=== PATIENT | female | born 1970 | race African-American/Black ===

== ENCOUNTER 2016-05-12 10:02 | Inpatient (IN) | payer OTHER ==
[~2016-05-12] VITALS: Ht 175.3 cm; Wt 85.0 kg
[~2016-05-12 10:02] MED LIST: PROM25SU8 PO; Z.0.NO CURRENT MEDS
[2016-05-12 10:06] VITALS: BP 206/109; PULSE 68; RESP 20; TEMP 98.1; O2SAT 99
[2016-05-12] MEDS ORDERED: AMLO5TAB2 PO (10:13)
[2016-05-12] MEDS ORDERED: SODIUM CHLOR 0.9% 1000 ML INJ 1,000 ML IV SCH (10:33)
[2016-05-12] MEDS ORDERED: methylPREDNISolone SOD SUCC 125 MG/2 ML VIAL IV PUSH ONE (10:45)
[2016-05-12] MEDS ORDERED: FAMOTIDINE 20 MG/2 ML VIAL IV PUSH ONE (10:45)
[2016-05-12] MEDS ORDERED: SODIUM CHLORIDE 0.9% FLUSH 5 ML FLUSH IVF PRN (10:45)
[2016-05-12] MEDS ORDERED: PIPERACIL-TAZO 4.5 GM PREMIX 100 ML IV ONE (11:45)
[2016-05-12] MEDS ORDERED: EPINEPHrine HCL (1:1000) 1 MG/ML VIAL IM ONE (11:45)
[2016-05-12 12:24] LABS: AUTOMATED NEUTROPHIL # 4.4 TH/MM3 (1.8-7.7); BASOPHIL % 0.3 % (0.0-2.0); EOSINOPHIL # 0.1 TH/MM3 (0-0.4); EOSINOPHIL % 1.1 % (0.0-4.0); HEMATOCRIT 38.2 % (35.0-46.0); HEMO FLAGS DIFF FINAL; LYMPHOCYTE # 1.9 TH/MM3 (1.0-4.8); MEAN CELL VOLUME 84.2 FL (80.0-100.0); MEAN CORPUSCULAR HEMOGLOBIN 27.6 PG (27.0-34.0); MEAN CORPUSCULAR HGB CONC 32.8 % (32.0-36.0); MONO % 6.4 % (0.0-8.0); NEUT % 64.2 % (16.0-70.0); PLATELET COUNT 241 TH/MM3 (150-450); RED BLOOD COUNT 4.54 MIL/MM3 (4.00-5.30); RED CELL DISTRIBUTION WIDTH 14.1 % (11.6-17.2); WHITE BLOOD COUNT 6.9 TH/MM3 (4.0-11.0)
[2016-05-12 12:38] LABS: APTT (PATIENT) 25.6 SEC (24.3-30.1); INTERNATIONAL NORMALIZED RATIO 0.9 RATIO; PROTHROMBIN TIME - PATIENT 9.9 SEC (9.8-11.6)
[2016-05-12 12:45] VITALS: BP 179/91; PULSE 98; PULSE 99; RESP 18; O2SAT 100; O2SAT 99
[2016-05-12 12:45] LABS: BICARBONATE 24.8 MEQ/L (21.0-32.0); POTASSIUM 4.3 MEQ/L (3.5-5.1)
--- NOTE | 2016-05-12 12:46 | PD ---
HPI Chief Complaint: Allergic/Adverse Reaction Time Seen by Provider: 10:22 Travel History International Travel<30 days: No Contact w/Intl Traveler<30days: No Traveled to known affect area: No History of Present Illness HPI 45-year-old female presents with swelling to the right side of her face and her left arm. She states it started on its own without other associated symptoms that she can recall. She states that she hasn't been exposed to anything new. She denies any other concurrent complaints. She states that she is on a blood pressure medication and it starts with an A but she's not sure what it is. PFSH Past Medical History Cardiovascular Problems: Yes Diminished Hearing: No Hypertension: Yes Tetanus Vaccination: > 5 Years ?: Not Past Surgical History Surgical History: No Previous Surgery Social History Alcohol Use: Yes (WEEKENDS, 2 GLASSES) Tobacco Use: No Substance Use: No Allergies-Medications (Allergen,Severity, Reaction): Coded Allergies: No Known Allergies (Verified , 05/12/16) Reported Meds & Prescriptions Reported Meds & Active Scripts Active Reported Amlodipine (Amlodipine Besylate) 5 Mg Tab 5 Mg PO DAILY Review of Systems Except as stated in HPI: all other systems reviewed are Neg Physical Exam Narrative GENERAL: Well-nourished, well-developed patient. SKIN: Warm and dry. HEAD: Mild amount of swelling noted to right lower face without extension across midline or into periorbital area or neck EYES: No injection or drainage. ENT: No nasal drainage noted. No uvula edema NECK: Supple, trachea midline. CARDIOVASCULAR: Regular rate and rhythm RESPIRATORY: Breath sounds equal bilaterally. No accessory muscle use. GASTROINTESTINAL: Abdomen soft, non-tender, nondistended. EXTREMITIES: No edema. Small area of redness and swelling noted to left dorsal aspect of forearm without induration NEUROLOGICAL: Awake and alert. Motor and sensory grossly within normal limits. Normal speech. Data Data Last Documented VS Vital Signs Date Time Temp Pulse Resp B/P Pulse Ox O2 Delivery O2 Flow Rate FiO2 05/12/16 13:57 22 98 Room Air 05/12/16 13:56 95 169/84 05/12/16 10:06 98.1 Orders Magnesium (Mg) (05/12/16 10:33) Phosphorus (Po4) (05/12/16 10:33) Complete Blood Count With Diff (05/12/16 10:33) Basic Metabolic Panel (Bmp) (05/12/16 10:33) Act Partial Throm Time (Ptt) (05/12/16 10:33) Prothrombin Time / Inr (Pt) (05/12/16 10:33) Iv Access Insert/Monitor (05/12/16 10:33) Ecg Monitoring (05/12/16 10:33) Oximetry (05/12/16 10:33) Methylprednisolone So Succ Inj (Solumedr (05/12/16 10:45) Famotidine Inj (Pepcid Inj) (05/12/16 10:45) Sodium Chlor 0.9% 1000 Ml Inj (Ns 1000 M (05/12/16 10:33) Sodium Chloride 0.9% Flush (Ns Flush) (05/12/16 10:45) Ct Soft Tiss Neck W Iv Cont (05/12/16 11:35) Soft Tissue Neck (05/12/16 ) Lactic Acid Sepsis Protocol (05/12/16 11:36) Blood Culture (05/12/16 11:36) Chest, Single Ap (05/12/16 11:36) Influenzae A/B Antigen (05/12/16 11:37) Group A Rapid Strep Screen (05/12/16 11:37) Piperacil-Tazo 4.5 Gm Premix (Zosyn 4.5 (05/12/16 11:45) Epinephrine (1:1000) Inj (Adrenalin (1:1 (05/12/16 11:45) Strep Culture (Group A) (05/12/16 12:15) Iohexol 350 Inj (Omnipaque 350 Inj) (05/12/16 13:43) Sodium Chlor 0.9% 1000 Ml Inj (Ns 1000 M (05/12/16 15:00) Admit To Inpatient (05/12/16 ) Code Status (05/12/16 14:54) Vital Signs (Adult) Q4H (05/12/16 14:54) Activity Oob With Assistance (05/12/16 14:54) Diet Regular Basic (05/12/16 Dinner) Sodium Chlor 0.9% 1000 Ml Inj (Ns 1000 M (05/12/16 14:54) Sodium Chloride 0.9% Flush (Ns Flush) (05/12/16 15:00) Sodium Chloride 0.9% Flush (Ns Flush) (05/12/16 21:00) Acetaminophen (Tylenol) (05/12/16 15:00) Ondansetron Inj (Zofran Inj) (05/12/16 15:00) Bisacodyl Supp (Dulcolax Supp) (05/12/16 15:00) Magnesium Hydroxide Liq (Milk Of Magnesi (05/12/16 15:00) Basic Metabolic Panel (Bmp) (05/13/16 06:00) Complete Blood Count With Diff (05/13/16 06:00) Resp Oxygen Edi C Titrat 1-4 L (05/12/16 ) Enoxaparin Inj (Lovenox Inj) (05/12/16 15:00) Naloxone Inj (Narcan Inj) (05/12/16 15:00) Inpatient Certification (05/12/16 ) Admit Order (Ed Use Only) (05/12/16 14:57) Labs Laboratory Tests Test 05/12/16 05/12/16 11:10 12:15 White Blood Count 6.9 TH/MM3 Red Blood Count 4.54 MIL/MM3 Hemoglobin 12.5 GM/DL Hematocrit 38.2 % Mean Corpuscular Volume 84.2 FL Mean Corpuscular Hemoglobin 27.6 PG Mean Corpuscular Hemoglobin 32.8 % Concent Red Cell Distribution Width 14.1 % Platelet Count 241 TH/MM3 Mean Platelet Volume 8.0 FL Neutrophils (%) (Auto) 64.2 % Lymphocytes (%) (Auto) 28.0 % Monocytes (%) (Auto) 6.4 % Eosinophils (%) (Auto) 1.1 % Basophils (%) (Auto) 0.3 % Neutrophils # (Auto) 4.4 TH/MM3 Lymphocytes # (Auto) 1.9 TH/MM3 Monocytes # (Auto) 0.4 TH/MM3 Eosinophils # (Auto) 0.1 TH/MM3 Basophils # (Auto) 0.0 TH/MM3 CBC Comment DIFF FINAL Differential Comment Prothrombin Time 9.9 SEC Prothromb Time International 0.9 RATIO Ratio Activated Partial 25.6 SEC Thromboplast Time Sodium Level 141 MEQ/L Potassium Level 4.3 MEQ/L Chloride Level 106 MEQ/L Carbon Dioxide Level 24.8 MEQ/L Anion Gap 10 MEQ/L Blood Urea Nitrogen 18 MG/DL Creatinine 0.90 MG/DL Estimat Glomerular Filtration 81 ML/MIN Rate Random Glucose 86 MG/DL Calcium Level 9.1 MG/DL Phosphorus Level 3.5 MG/DL Magnesium Level 2.0 MG/DL Lactic Acid Level 2.9 mmol/L MDM Medical Decision Making Medical Screen Exam Complete: Yes Emergency Medical Condition: Yes Medical Record Reviewed: Yes (past history confirmed) Interpretation(s) CBC & BMP Diagram 05/12/16 11:10 Last 24 hours Impressions Chest X-Ray 05/12/16 1136 Signed Impressions: Service Date/Time: Thursday, May 12, 2016 12:09 - CONCLUSION: Normal examination except for mild scarring right upper lobe. Yaw Tse MD Neck CT 05/12/16 1135 Signed Impressions: Service Date/Time: Thursday, May 12, 2016 13:31 - CONCLUSION: Definite soft tissue inflammation in the right facial region, but I don't see an underlying soft tissue mass or abscess. Bone windows are negative. Quite dense bones even in the thoracic spine as well as the skull. Correlate for some systemic reason for that. Yaw Tse MD Soft Tissue Neck X-Ray 05/12/16 0000 Signed Impressions: Service Date/Time: Thursday, May 12, 2016 12:11 - CONCLUSION: Normal examination. 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 Yaw Tse MD Lactate is elevated Differential Diagnosis Allergic reaction, abscess, cellulitis Narrative Course Will check blood work and dose with Solu-Medrol and Pepcid. Patient was given Benadryl in route and stated that improved her symptoms On recheck patient now has mild submental swelling, add on blood culture, lactate, soft tissue x-ray, CT scan neck and dose with Zosyn while awaiting testing. She has no wheezing or uvula swelling question spreading infection On recheck again patient denies any change, controlling her secretions, talking clearly Patient updated and agrees to admission for further care. Sepsis Criteria SIRS Criteria (2 or more): Heart rate over 90, RR > 20 or PaCO2 < 32 Sepsis Criteria (SIRS+source): Infect source susp/known Severe Sepsis (+one): Lactate >2 Physician Communication Physician Communication dr mahan agrees to admit Diagnosis Primary Impression: Sepsis Qualified Code: A41.9 - Sepsis, due to unspecified organism Additional Impression: Cellulitis, face Admitting Information Admitting Physician Requests: Admit Samreen Pollock MD May 12, 2016 12:46
--- NOTE | 2016-05-12 12:54 | RADRPT ---
EXAM DATE/TIME: 05/12/2016 12:09 [facility] COMPARISON: No previous studies available for comparison. INDICATIONS : Swelling in neck times 1 day, pain in neck times 4 days. MEDICAL HISTORY : None. SURGICAL HISTORY : None. ENCOUNTER: Initial ACUITY: 4 - 6 days PAIN SCORE: 3/10 LOCATION: Bilateral upper chest FINDINGS: A single view of the chest demonstrates the lungs to be symmetrically aerated without evidence of mas s, infiltrate or effusion. The cardiomediastinal contours are unremarkable. Osseous structures are intact. CONCLUSION: Normal examination except for mild scarring right upper lobe. Yaw Tse MD on May 12, 2016 at 12:53 Board Certified Radiologist. This report was verified electronically.
--- NOTE | 2016-05-12 13:18 | RADRPT ---
EXAM DATE/TIME: 05/12/2016 12:11 [facility] COMPARISON: No previous studies available for comparison. INDICATIONS : Swelling in neck times 1 day, pain in neck times 4 days. MEDICAL HISTORY : None. SURGICAL HISTORY : None. ENCOUNTER: Initial ACUITY: 4 - 6 days PAIN SCORE: 3/10 LOCATION: Bilateral neck FINDINGS: Two view examination of the soft tissues of the neck demonstrates the hypopharyngeal airway to have a grossly normal configuration. The trachea is midline. No radiopaque foreign bodies are seen. CONCLUSION: Normal examination. 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 Yaw Tse MD on May 12, 2016 at 13:16 Board Certified Radiologist. This report was verified electronically.
[2016-05-12] MEDS ORDERED: IOHEXOL 350 MG/ML 10 ML VIAL (for RAD DIAG) IV ONE (13:43)
[2016-05-12 13:56] VITALS: BP_SYST 169; BP_SYST 19; BP_DIAS 84; PULSE 95; RESP 22; O2SAT 97
--- NOTE | 2016-05-12 14:30 | RADRPT ---
EXAM DATE/TIME: 05/12/2016 13:31 [facility] COMPARISON: No previous studies available for comparison. INDICATIONS : Soft tissue swelling, pain IV CONTRAST: 89 cc Omnipaque 350 (iohexol) IV RADIATION DOSE: 18.40 CTDIvol (mGy) MEDICAL HISTORY : Hypertension. Cardiovascular disease SURGICAL HISTORY : None. ENCOUNTER: Initial ACUITY: 1 day PAIN SCALE: 0/10 LOCATION: Right facial TECHNIQUE: Volumetric scanning of the neck was performed. Using automated exposure control and adjustment of th e mA and/or kV according to patient size, radiation dose was kept as low as reasonably achievable to obtain optimal diagnostic quality images. FINDINGS: CT scan soft tissue was performed with IV contrast. The subcutaneous fat overlying the right maxilla and right mandible are clearly more indurated and swollen than the left side. I don't see drainable fluid collection or abscess. No bony destruction is identified. No obvious abscess is seen. The patient has maxillary sinuses bilaterally (right greater than left). No air fluid levels identif ied. The globes are normal in shape. The floor of the mouth and the patients tongue are unremarkable. There are a few small submental lym ph nodes present. The thyroid is unremarkable. There is some reactive adenopathy in the jugular vei ns bilaterally (left greater than right). Parotid gland and submandibular glands are symmetric. CONCLUSION: Definite soft tissue inflammation in the right facial region, but I don't see an underlying soft tiss ue mass or abscess. Bone windows are negative. Quite dense bones even in the thoracic spine as well as the skull. Correlate for some systemic reason for that. Yaw Tse MD on May 12, 2016 at 14:01 Board Certified Radiologist. This report was verified electronically.
[2016-05-12 14:49] LABS: LACTIC ACID GHOST NOT REPORTABLE
[2016-05-12] MEDS ORDERED: BISACODYL 10 MG SUPP PR PRN (15:00)
[2016-05-12] MEDS ORDERED: SODIUM CHLOR 0.9% 1000 ML INJ 1,000 ML IV ONE (15:00)
[2016-05-12] MEDS ORDERED: SODIUM CHLORIDE 0.9% FLUSH 5 ML FLUSH FLUSH PRN (15:00)
[2016-05-12] MEDS ORDERED: ONDANSETRON HCL 4 MG/2 ML VIAL IVP PRN (15:00)
[2016-05-12] MEDS ORDERED: MAGNESIUM HYDROXIDE SUSP 30 ML CUP PO PRN (15:00)
[2016-05-12] MEDS ORDERED: ACETAMINOPHEN 325 MG TAB PO PRN (15:00)
[2016-05-12] MEDS ORDERED: NALOXONE HCL 0.4 MG/ML AMP IV PRN (15:00)
[2016-05-12] MEDS: ENOXAPARIN SODIUM 40 MG/0.4 ML SYRINGE SQ SCH (15:17)
[2016-05-12 15:24] VITALS: BP 184/92; PULSE 76; RESP 18; O2SAT 76; O2SAT 96
--- NOTE | 2016-05-12 17:19 | HHI.HP ---
[facility] Service [facility] Primary Care Physician No Primary Care Physician Admission Diagnosis facial cellulitis Diagnoses: Chief Complaint: Face swelling. Travel History International Travel<30 Days: No Contact w/Intl Traveler <30 Da: No Traveled to Known Affected Are: No Sepsis Criteria SIRS Criteria (2 or more): Heart rate over 90, RR > 20 or PaCO2 < 32 Sepsis Criteria (SIRS+source): Infect source susp/known Severe Sepsis (+one): Lactate >2 Past Family Social History Allergies: Coded Allergies: No Known Allergies (Verified , 05/12/16) Physical Exam Vital Signs Vital Signs Date Time Temp Pulse Resp B/P Pulse Ox O2 Delivery O2 Flow Rate FiO2 05/12/16 15:24 76 18 184/92 96 Room Air 05/12/16 13:57 22 98 Room Air 05/12/16 13:56 95 22 169/84 97 05/12/16 12:45 98 18 179/91 99 Room Air 05/12/16 12:45 99 18 179/91 100 Room Air 05/12/16 10:06 98.1 68 20 206/109 99 Physical Exam GENERAL: This is a well-nourished, well-developed patient, in no apparent distress. SKIN: No rashes, ecchymoses or lesions. Cool and dry. HEAD: Atraumatic. Normocephalic. No temporal or scalp tenderness. EYES: Pupils equal round and reactive. Extraocular motions intact. No scleral icterus. No injection or drainage. ENT: Nose without bleeding, purulent drainage or septal hematoma. Throat without erythema, tonsillar hypertrophy or exudate. Uvula midline. Airway patent. NECK: Trachea midline. No JVD or lymphadenopathy. Supple, nontender, no meningeal signs. CARDIOVASCULAR: Regular rate and rhythm without murmurs, gallops, or rubs. RESPIRATORY: Clear to auscultation. Breath sounds equal bilaterally. No wheezes , rales, or rhonchi. GASTROINTESTINAL: Abdomen soft, non-tender, nondistended. No hepato-splenomegaly , or palpable masses. No guarding. MUSCULOSKELETAL: Extremities without clubbing, cyanosis, or edema. No joint tenderness, effusion, or edema noted. No calf tenderness. Negative Homans sign bilaterally. NEUROLOGICAL: Awake and alert. Cranial nerves II through XII intact. Motor and sensory grossly within normal limits. Five out of 5 muscle strength in all muscle groups. Normal speech. Laboratory Laboratory Tests Test 05/12/16 05/12/16 05/12/16 11:10 12:15 15:56 White Blood Count 6.9 Red Blood Count 4.54 Hemoglobin 12.5 Hematocrit 38.2 Mean Corpuscular Volume 84.2 Mean Corpuscular Hemoglobin 27.6 Mean Corpuscular Hemoglobin 32.8 Concent Red Cell Distribution Width 14.1 Platelet Count 241 Mean Platelet Volume 8.0 Neutrophils (%) (Auto) 64.2 Lymphocytes (%) (Auto) 28.0 Monocytes (%) (Auto) 6.4 Eosinophils (%) (Auto) 1.1 Basophils (%) (Auto) 0.3 Neutrophils # (Auto) 4.4 Lymphocytes # (Auto) 1.9 Monocytes # (Auto) 0.4 Eosinophils # (Auto) 0.1 Basophils # (Auto) 0.0 CBC Comment DIFF FINAL Differential Comment Prothrombin Time 9.9 Prothromb Time International 0.9 Ratio Activated Partial 25.6 Thromboplast Time Sodium Level 141 Potassium Level 4.3 Chloride Level 106 Carbon Dioxide Level 24.8 Anion Gap 10 Blood Urea Nitrogen 18 Creatinine 0.90 Estimat Glomerular Filtration 81 Rate Random Glucose 86 Calcium Level 9.1 Phosphorus Level 3.5 Magnesium Level 2.0 Lactic Acid Level 2.9 2.0 Date/Time Procedure Status Source Growth 05/12/16 12:20 Influenza Types A,B Antigen (ISATU) - Final Complete Nasal Aspirate NEGATIVE FOR FLU A AND B ANTIGEN.... 05/12/16 12:20 Aerobic Blood Culture Received Blood Peripheral Pending 05/12/16 12:20 Anaerobic Blood Culture Received Blood Peripheral Pending 05/12/16 12:15 Group A Streptococcus Screen (ISATU) - Final Complete Throat 05/12/16 12:15 Group A Streptococcus Screen Received Throat Pending Result Diagram: 05/12/16 1110 05/12/16 1110 Radha Babb DO May 12, 2016 17:19
[2016-05-12 17:56] VITALS: BP 179/99; PULSE 69; RESP 20; O2SAT 97
[2016-05-12] MEDS ORDERED: CLINDAMYCIN 150 MG CAP PO SCH (18:00)
[2016-05-12] MEDS: metroNIDAZOLE 500 MG TAB PO SCH ×2 (18:14→23:12)
[2016-05-12] MEDS: methylPREDNISolone SOD SUCC 40 MG/1 ML VIAL IV PUSH SCH ×2 (18:14→23:11)
[2016-05-12] MEDS: SODIUM CHLOR 0.9% 1000 ML INJ 1,000 ML IV SCH (18:14)
[2016-05-12] MEDS: CLINDAMYCIN INJ 300 MG in SODIUM CHLORIDE 0.9% INJ 100 ML IV SCH (19:00)
--- NOTE | 2016-05-12 19:51 | HHI.HP ---
[facility] No Primary Care Physician Admission Diagnosis facial cellulitis Diagnoses: Chief Complaint: Left sided facial swelling. Travel History International Travel<30 Days: No Contact w/Intl Traveler <30 Da: No Traveled to Known Affected Are: No Sepsis Criteria SIRS Criteria (2 or more): Heart rate over 90, RR > 20 or PaCO2 < 32 Sepsis Criteria (SIRS+source): Infect source susp/known Severe Sepsis (+one): Lactate >2 History of Present Illness Ms. Winslow is a pleasant 45 year old female with a history of hypertension who presents to the ED today due to right sided facial swelling and a smaller swelling on her left arm as well. She woke up with these symptoms. Her friend at bedside reports no such symptoms last night she saw Ms. Winslow. Patient denies any fever, chills. She only takes Amlodipine for blood pressure. She reports no dental problems. Denies any bug bites that she can recall. Denies any changes in bowel or bladder habits. In the ED, patient's BP was somewhat elevated systolic in the 170s range, heart rate 95, resp rate 22. Lactic acid 3.9 and later 2.0. Review of Systems ROS Limitations: Other (Negative except as noted in the HPI. ) Past Family Social History Past Medical History Hypertension Past Surgical History No Major surgery. Reported Medications Amlodipine 5mg Qday Allergies: Coded Allergies: No Known Allergies (Verified , 05/12/16) Family History No significant family history of heart disease, hypertension. Social History Does not smoke but drinks 1-2 beer a day. Denies using illicit drugs. Physical Exam Vital Signs Vital Signs Date Time Temp Pulse Resp B/P Pulse Ox O2 Delivery O2 Flow Rate FiO2 05/12/16 17:56 69 20 179/99 97 Room Air 05/12/16 15:24 76 18 184/92 96 Room Air 05/12/16 13:57 22 98 Room Air 05/12/16 13:56 95 22 169/84 97 05/12/16 12:45 98 18 179/91 99 Room Air 05/12/16 12:45 99 18 179/91 100 Room Air 05/12/16 10:06 98.1 68 20 206/109 99 Physical Exam GENERAL: This is a well-nourished, well-developed patient, in no apparent distress. SKIN: No rashes, ecchymoses or lesions. Warm and dry. Right face with swelling, non-tender. No gum disease or dental disease noted. No purulent drainage. Left forearm with a small swelling. HEAD: Atraumatic. Normocephalic. No temporal or scalp tenderness. EYES: Pupils equal round and reactive. No injection or drainage. ENT: Nose without bleeding, purulent drainage or septal hematoma. Airway patent. NECK: Trachea midline. No lymphadenopathy. Supple, nontender, no meningeal signs. CARDIOVASCULAR: Regular rate and rhythm without murmurs, gallops, or rubs. No JVD. RESPIRATORY: Clear to auscultation. Breath sounds equal bilaterally. No wheezes , rales, or rhonchi. GASTROINTESTINAL: Abdomen soft, non-tender, nondistended. No guarding. MUSCULOSKELETAL: Extremities without clubbing, cyanosis, or edema. NEUROLOGICAL: Awake and alert. Cranial nerves II through XII intact. No focal neurological deficits. Normal speech. Laboratory Laboratory Tests Test 05/12/16 05/12/16 05/12/16 11:10 12:15 15:56 White Blood Count 6.9 Red Blood Count 4.54 Hemoglobin 12.5 Hematocrit 38.2 Mean Corpuscular Volume 84.2 Mean Corpuscular Hemoglobin 27.6 Mean Corpuscular Hemoglobin 32.8 Concent Red Cell Distribution Width 14.1 Platelet Count 241 Mean Platelet Volume 8.0 Neutrophils (%) (Auto) 64.2 Lymphocytes (%) (Auto) 28.0 Monocytes (%) (Auto) 6.4 Eosinophils (%) (Auto) 1.1 Basophils (%) (Auto) 0.3 Neutrophils # (Auto) 4.4 Lymphocytes # (Auto) 1.9 Monocytes # (Auto) 0.4 Eosinophils # (Auto) 0.1 Basophils # (Auto) 0.0 CBC Comment DIFF FINAL Differential Comment Prothrombin Time 9.9 Prothromb Time International 0.9 Ratio Activated Partial 25.6 Thromboplast Time Sodium Level 141 Potassium Level 4.3 Chloride Level 106 Carbon Dioxide Level 24.8 Anion Gap 10 Blood Urea Nitrogen 18 Creatinine 0.90 Estimat Glomerular Filtration 81 Rate Random Glucose 86 Calcium Level 9.1 Phosphorus Level 3.5 Magnesium Level 2.0 Lactic Acid Level 2.9 2.0 Date/Time Procedure Status Source Growth 05/12/16 12:20 Influenza Types A,B Antigen (ISATU) - Final Complete Nasal Aspirate NEGATIVE FOR FLU A AND B ANTIGEN.... 05/12/16 12:20 Aerobic Blood Culture Received Blood Peripheral Pending 05/12/16 12:20 Anaerobic Blood Culture Received Blood Peripheral Pending 05/12/16 12:15 Group A Streptococcus Screen (ISATU) - Final Complete Throat 05/12/16 12:15 Group A Streptococcus Screen Received Throat Pending Result Diagram: 05/12/16 1110 05/12/16 1110 Imaging Last Impressions Chest X-Ray 05/12/16 1136 Signed Impressions: Service Date/Time: Thursday, May 12, 2016 12:09 - CONCLUSION: Normal examination except for mild scarring right upper lobe. Yaw Tse MD Neck CT 05/12/16 1135 Signed Impressions: Service Date/Time: Thursday, May 12, 2016 13:31 - CONCLUSION: Definite soft tissue inflammation in the right facial region, but I don't see an underlying soft tissue mass or abscess. Bone windows are negative. Quite dense bones even in the thoracic spine as well as the skull. Correlate for some systemic reason for that. Yaw Tse MD Soft Tissue Neck X-Ray 05/12/16 0000 Signed Impressions: Service Date/Time: Thursday, May 12, 2016 12:11 - CONCLUSION: Normal examination. 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 Yaw Tse MD Assessment and Plan Problem List: (1) Sepsis ICD Code: A41.9 Status: Acute (2) Cellulitis, face ICD Code: L03.211 Status: Acute Assessment and Plan Ms. Winslow is a pleasant 45 year old female with a history of Amlodipine who presents to the ED with right sided facial swelling as well as left arm minor swelling that she noticed on the day of admission 05/12/2016. Patient denies any fever, chills. On admission, she was somewhat hypertensive (systolic 170s), tachycardic, tachypneic. Lactic acid 3.9, 2.0. - Sepsis possibly due to left facial cellulitis. - Left facial cellulitis. - We will empirically treat patient with Solu-medrol 40mg Q6hrs as well as abx. - Start Clindamycin 300mg Q6hrs IV and Flagyl 500mg QID PO. - Airway intact. - If no clinical improvement by 05/13/2016, we will consider a plastic surgery or Maxillofacial surgery consult. - Hypertension - Continue amlodipine 5mg Qday - Clindamycin and Hydralazine PRN - Alcohol abuse - Counselled patient. Full code. Britx. Physician Certification 2 Midnight Certification Type: Admission for Inpatient Services Order for Inpatient Services The services are ordered in accordance with Medicare regulations or non- Medicare payer requirements, as applicable. In the case of services not specified as inpatient-only, they are appropriately provided as inpatient services in accordance with the 2-midnight benchmark. Estimated LOS (days): 2 days is the estimated time the patient will need to remain in the hospital, assuming treatment plan goals are met and no additional complications. Post-Hospital Plan: Home Problem Qualifiers (1) Sepsis: Qualified Code: A41.9 - Sepsis, due to unspecified organism Radha Babb DO May 12, 2016 19:51
[2016-05-12 20:00] VITALS: BP 174/92; PULSE 81; RESP 17; TEMP 96.6; O2SAT 98
[2016-05-12] MEDS ORDERED: hydrALAZINE HCL 10 MG TAB PO PRN (20:45)
[2016-05-12] MEDS ORDERED: cloNIDine HCL 0.1 MG TAB PO PRN (20:45)
[2016-05-12] MEDS: SODIUM CHLORIDE 0.9% FLUSH 5 ML FLUSH FLUSH SCH (23:11)
[2016-05-12] MEDS: oxyCODONE/ACETAMINOPHEN 5 MG/325 MG TAB PO PRN (23:14)
[2016-05-13] VITALS (7 sets, daily range): BP systolic 128–164; BP diastolic 61–91; PULSE 72–97; RESP 17–20; TEMP 95.6–97; O2SAT 92–98
[2016-05-13] MEDS ORDERED: diphenhydrAMINE HCL 25 MG CAP PO ONE (01:30)
[2016-05-13] MEDS: CLINDAMYCIN INJ 300 MG in SODIUM CHLORIDE 0.9% INJ 100 ML IV SCH ×3 (01:37→12:34)
[2016-05-13] MEDS: SODIUM CHLOR 0.9% 1000 ML INJ 1,000 ML IV SCH ×3 (01:39→20:54)
[2016-05-13 05:41] LABS: AUTOMATED NEUTROPHIL # 9.3 TH/MM3 (1.8-7.7); BASOPHIL % 0.1 % (0.0-2.0); HEMATOCRIT 37.7 % (35.0-46.0); HEMO FLAGS DIFF FINAL; LYMPH % 8.5 % (9.0-44.0); LYMPHOCYTE # 0.9 TH/MM3 (1.0-4.8); MEAN CELL VOLUME 84.9 FL (80.0-100.0); MEAN CORPUSCULAR HEMOGLOBIN 28.1 PG (27.0-34.0); MEAN CORPUSCULAR HGB CONC 33.1 % (32.0-36.0); MONO % 1.8 % (0.0-8.0); NEUT % 89.6 % (16.0-70.0); PLATELET COUNT 210 TH/MM3 (150-450); RED BLOOD COUNT 4.43 MIL/MM3 (4.00-5.30); RED CELL DISTRIBUTION WIDTH 13.9 % (11.6-17.2); WHITE BLOOD COUNT 10.4 TH/MM3 (4.0-11.0)
[2016-05-13 06:14] LABS: BICARBONATE 22.3 MEQ/L (21.0-32.0)
[2016-05-13] MEDS: methylPREDNISolone SOD SUCC 40 MG/1 ML VIAL IV PUSH SCH ×4 (06:31→23:07)
[2016-05-13] MEDS: metroNIDAZOLE 500 MG TAB PO SCH ×2 (06:31→11:59)
[2016-05-13] MEDS: SODIUM CHLORIDE 0.9% FLUSH 5 ML FLUSH FLUSH SCH ×2 (09:00→23:07)
[2016-05-13] MEDS ORDERED: amLODIPine BESYLATE 5 MG TAB PO SCH (09:00)
[2016-05-13] MEDS: oxyCODONE/ACETAMINOPHEN 5 MG/325 MG TAB PO PRN ×2 (09:16→23:06)
--- NOTE | 2016-05-13 10:14 | HHI.PR ---
Subjective Remarks Follow up for angioedema. Ms. Winslow reports improvement of left facial swelling. However, she complains of submental region swelling. No airway issues but she has some trouble with swallow. Objective Vitals Vital Signs Date Time Temp Pulse Resp B/P Pulse Ox O2 Delivery O2 Flow Rate FiO2 05/13/16 09:00 98 21 05/13/16 08:00 96.5 95 18 160/85 96 05/13/16 04:00 96.5 72 19 128/61 96 05/13/16 00:00 95.8 97 17 157/85 97 05/12/16 20:00 96.6 81 17 174/92 98 05/12/16 17:56 69 20 179/99 97 Room Air 05/12/16 15:24 76 18 184/92 96 Room Air 05/12/16 13:57 22 98 Room Air 05/12/16 13:56 95 22 169/84 97 05/12/16 12:45 98 18 179/91 99 Room Air 05/12/16 12:45 99 18 179/91 100 Room Air I/O 05/12/16 05/12/16 05/12/16 05/13/16 05/13/16 05/13/16 07:00 15:00 23:00 07:00 15:00 23:00 Intake Total 480 ml 240 ml Balance 480 ml 240 ml Intake Oral 480 ml 240 ml # Voids 1 2 Result Diagram: 05/13/16 0440 05/13/16 0440 Imaging Last Impressions Chest X-Ray 05/12/16 1136 Signed Impressions: Service Date/Time: Thursday, May 12, 2016 12:09 - CONCLUSION: Normal examination except for mild scarring right upper lobe. Yaw Tse MD Neck CT 05/12/16 1135 Signed Impressions: Service Date/Time: Thursday, May 12, 2016 13:31 - CONCLUSION: Definite soft tissue inflammation in the right facial region, but I don't see an underlying soft tissue mass or abscess. Bone windows are negative. Quite dense bones even in the thoracic spine as well as the skull. Correlate for some systemic reason for that. Yaw Tse MD Soft Tissue Neck X-Ray 05/12/16 0000 Signed Impressions: Service Date/Time: Thursday, May 12, 2016 12:11 - CONCLUSION: Normal examination. 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 Yaw Tse MD Objective Remarks GENERAL: Alert, Oriented x 3, NAD. SKIN: Warm and dry. HEAD: Normocephalic. EYES: No scleral icterus. No injection or drainage. NECK: Supple, trachea midline. No JVD or lymphadenopathy. CARDIOVASCULAR: Regular rate and rhythm without murmurs, gallops, or rubs. RESPIRATORY: Breath sounds equal bilaterally. No accessory muscle use. GASTROINTESTINAL: Abdomen soft, non-tender, nondistended. MUSCULOSKELETAL: No cyanosis, or edema. BACK: Nontender without obvious deformity. No CVA tenderness. Procedures None. A/P Problem List: (1) Angioedema ICD Code: T78.3XXA Status: Acute (2) HTN (hypertension) ICD Code: I10 Status: Acute Assessment and Plan Ms. Winslow is a pleasant 45 year old female with a history of Amlodipine who presents to the ED with right sided facial swelling as well as left arm minor swelling that she noticed on the day of admission 05/12/2016. Patient denies any fever, chills. On admission, she was somewhat hypertensive (systolic 170s), tachycardic, tachypneic. Lactic acid 3.9, 2.0. - Angioedema - We empirically started treating patient with Solu-medrol 40mg Q6hrs as well as abx. - Appreciate ENT input. - D/C clindamycin 300mg Q6hrs IV and Flagyl 500mg QID PO. - Airway intact. - Will continue Solu-medrol and possibly discharge patient tomorrow to follow up with an Newspaper Photographer. - Hypertension - Patient was taking only Amlodipine which is not known to cause Angioedema. - Will discontinue Amlodipine for now. - Will start patient on Labetalol 100mg BID for BP, titrate up as needed. May need to add HCTZ. - Alcohol abuse - Counselled patient. Full code. Britx. Radha Babb DO May 13, 2016 10:14 am
--- NOTE | 2016-05-13 15:17 | HHI.PR ---
Subjective Remarks Note dictated. Objective Vital Signs Date Time Temp Pulse Resp B/P Pulse Ox O2 Delivery O2 Flow Rate FiO2 05/13/16 12:00 97.0 94 17 140/76 92 05/13/16 09:00 98 21 05/13/16 08:00 96.5 95 18 160/85 96 05/13/16 04:00 96.5 72 19 128/61 96 05/13/16 00:00 95.8 97 17 157/85 97 05/12/16 20:00 96.6 81 17 174/92 98 05/12/16 17:56 69 20 179/99 97 Room Air 05/12/16 15:24 76 18 184/92 96 Room Air I/O 05/12/16 05/12/16 05/12/16 05/13/16 05/13/16 05/13/16 07:00 15:00 23:00 07:00 15:00 23:00 Intake Total 480 ml 240 ml 1078 ml Balance 480 ml 240 ml 1078 ml Intake Oral 480 ml 240 ml IV Total 1078 ml # Voids 1 2 Result Diagram: 05/13/16 0440 05/13/16 0440 Assessment and Plan Assessment and Plan Angioedema. needs allergy eval. See dictated consult. Gunnar Carreon MD May 13, 2016 15:17
--- NOTE | 2016-05-13 15:32 | MB ---
cc: AMAYA VELIZ M.D. DATE OF CONSULTATION: 05/13/2016 CHIEF COMPLAINT Right facial swelling. HISTORY OF PRESENT ILLNESS This 45-year-old female was in her usual state of health doing well when she noticed the sudden onset of edema in the right facial area that occurred going from Wednesday night into Wednesday morning. Parenthetically her only history in terms of meds is taking amlodipine for blood pressure. She has no dental pain or dental problems. Denies any sinus pressure. She does not recall any injury nor any insect or other irritation to the area. She had the right facial swelling and presented to the emergency department. She was treated in the hospital for possible angioedema with steroids and Benadryl and she readily improved and showed a normal white count. PAST MEDICAL HISTORY The past medical history is negative except as noted above. PHYSICAL EXAMINATION GENERAL: A well-developed female currently in no distress. HENT: External ear canals are clear. The facial exam is really symmetric at this point. There is good motion over the facial nerve bilaterally. There is no evidence of a lesion at the skin. The lips, oral mucosa and oropharynx show no lesion. NECK: The neck shows no masses. There is still slight swelling in the submental area but no discrete lesion palpated. IMAGING Review of CT scan was consistent with edema with no significant mass. ASSESSMENT This is not consistent with a sinus or dental source, does not appear to be infectious, most likely clinically this is angioedema with sudden onset and no other issues. The patient is responding to treatment with steroids and Benadryl and clindamycin. It is not really clear that she needs an antibiotic. RECOMMENDATIONS I recommend that she continue the IV steroids overnight tonight and I would get her to see allergy and immunology. She will need to be discharged for this. She could be discharged tomorrow morning, perhaps on a Medrol Dosepak and then see Dr. Saleh or Dr. Rylan Gonzalez, allergists, in [facility]. They have particular interest in angioedema and have seen these patient's before. MD MARC Kenney/JAGDISH /3:16 PM /3:22 PM
[2016-05-13] MEDS: ENOXAPARIN SODIUM 40 MG/0.4 ML SYRINGE SQ SCH (15:36)
[2016-05-13] MEDS ORDERED: LABETALOL HCL 100 MG TAB PO SCH (21:00)
[2016-05-14] VITALS: BP 151/92; PULSE 88; RESP 20; TEMP 97.4; O2SAT 94
[2016-05-14] MEDS: methylPREDNISolone SOD SUCC 40 MG/1 ML VIAL IV PUSH SCH (05:52)
[2016-05-14] MEDS: SODIUM CHLOR 0.9% 1000 ML INJ 1,000 ML IV SCH (05:53)
[2016-05-14] MEDS: oxyCODONE/ACETAMINOPHEN 5 MG/325 MG TAB PO PRN (05:56)
[2016-05-14 08:00] VITALS: BP 178/96; PULSE 98; RESP 18; TEMP 95.8; O2SAT 95
[2016-05-14] MEDS: SODIUM CHLORIDE 0.9% FLUSH 5 ML FLUSH FLUSH SCH (09:00)
[2016-05-14] MEDS ORDERED: LABETALOL HCL 100 MG TAB PO SCH (09:00)
[2016-05-14] MEDS ORDERED: CHLOROTHIAZIDE 250 MG TAB PO SCH (09:00)
[2016-05-14] MEDS ORDERED: MEDR4PAK PO (09:20)
[2016-05-14] MEDS ORDERED: LABE100T2 PO (09:20)
--- NOTE | 2016-05-14 09:22 | HHI.DS ---
Discharge Summary Admission Date May 12, 2016 at 2:59 pm Discharge Date: May 14, 2016 Admitting Diagnosis facial cellulitis (1) Angioedema ICD Code: T78.3XXA Diagnosis: Principal (2) HTN (hypertension) ICD Code: I10 Procedures None. Brief History - From Admission Ms. Winslow is a pleasant 45 year old female with a history of hypertension who presents to the ED today due to right sided facial swelling and a smaller swelling on her left arm as well. She woke up with these symptoms. Her friend at bedside reports no such symptoms last night she saw Ms. Winslow. Patient denies any fever, chills. She only takes Amlodipine for blood pressure. She reports no dental problems. Denies any bug bites that she can recall. Denies any changes in bowel or bladder habits. In the ED, patient's BP was somewhat elevated systolic in the 170s range, heart rate 95, resp rate 22. Lactic acid 3.9 and later 2.0. CBC/BMP: 05/13/16 0440 05/13/16 0440 Significant Findings Laboratory Tests Test 05/12/16 05/12/16 05/13/16 11:10 12:15 04:40 Estimat Glomerular Filtration 81 ML/MIN (>89) 65 ML/MIN (>89) Rate Lactic Acid Level 2.9 mmol/L (0.4-2.0) Neutrophils (%) (Auto) 89.6 % (16.0-70.0) Lymphocytes (%) (Auto) 8.5 % (9.0-44.0) Neutrophils # (Auto) 9.3 TH/MM3 (1.8-7.7) Lymphocytes # (Auto) 0.9 TH/MM3 (1.0-4.8) Creatinine 1.09 MG/DL (0.50-1.00) Random Glucose 151 MG/DL (74-106) Imaging Last Impressions Chest X-Ray 05/12/16 1136 Signed Impressions: Service Date/Time: Thursday, May 12, 2016 12:09 - CONCLUSION: Normal examination except for mild scarring right upper lobe. Yaw Tse MD Neck CT 05/12/16 1135 Signed Impressions: Service Date/Time: Thursday, May 12, 2016 13:31 - CONCLUSION: Definite soft tissue inflammation in the right facial region, but I don't see an underlying soft tissue mass or abscess. Bone windows are negative. Quite dense bones even in the thoracic spine as well as the skull. Correlate for some systemic reason for that. Yaw Tse MD Soft Tissue Neck X-Ray 05/12/16 0000 Signed Impressions: Service Date/Time: Thursday, May 12, 2016 12:11 - CONCLUSION: Normal examination. 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 Yaw Tse MD PE at Discharge GENERAL: Alert, Oriented x 3, NAD. SKIN: Warm and dry. HEAD: Normocephalic. EYES: No scleral icterus. No injection or drainage. NECK: Supple, trachea midline. No JVD or lymphadenopathy. CARDIOVASCULAR: Regular rate and rhythm without murmurs, gallops, or rubs. RESPIRATORY: Breath sounds equal bilaterally. No accessory muscle use. GASTROINTESTINAL: Abdomen soft, non-tender, nondistended. MUSCULOSKELETAL: No cyanosis, or edema. BACK: Nontender without obvious deformity. No CVA tenderness. Pt update on day of discharge Ms. Winslow is doing well. No acute concerns. Denies any fever, chills. Hospital Course Ms. Winslow is a pleasant 45 year old female with a history of Amlodipine who presents to the ED with right sided facial swelling as well as left arm minor swelling that she noticed on the day of admission 05/12/2016. Patient denies any fever, chills. On admission, she was somewhat hypertensive (systolic 170s), tachycardic, tachypneic. Lactic acid 3.9, 2.0. - Angioedema - We empirically started treating patient with Solu-medrol 40mg Q6hrs as well as abx. - Appreciate ENT input. ENT recommended outpatient barrel and receiver aligner evaluation. - D/C clindamycin 300mg Q6hrs IV and Flagyl 500mg QID PO. - Airway intact. - Will continue Solu-medrol while she is in the hospital. Medrol dosepak on discharge. - Hypertension - Patient was taking only Amlodipine which is not known to cause Angioedema. However, this is the only medication she recently started. - Will discontinue Amlodipine for now. - Will start patient on Labetalol 100mg BID for BP, titrate up as needed. May need to add HCTZ. - Discussed with patient to follow up with her PCP regarding blood pressure. - Alcohol abuse - Counselled patient. Again, discussed with patient at length regarding her hypertension and lifestyle modifications. All questions answered. Pt Condition on Discharge: Good Discharge Disposition: Discharge Home Discharge Time: > 30 minutes Discharge Instructions DIET: Follow Instructions for: As Tolerated, No Restrictions Activities you can perform: Regular-No Restrictions Follow up Referrals: Allergy & Immunology - 1 Week PCP Follow-up - 2-3 Days New Medications: Methylprednisolone Dosepak (Medrol Dosepak) 4 Mg Dspk 4 MG PO DIRECTED Per Pharmacist direction #1 Ref 0 DSPK Labetalol (Labetalol) 100 Mg Tab 200 MG PO Q12HR Blood Pressure Management #60 TAB Discontinued Medications: Amlodipine (Amlodipine) 5 Mg Tab 5 MG PO DAILY Blood Pressure Management #30 Ref 0 TAB Radha Babb DO May 14, 2016 9:22 am
== END 2016-05-14 11:44 | disposition home or self-care (01) | DRG 916 ==
LOC: NEPE 10:02 → NEDA 14:59 → N07A 18:34
PROVIDERS: ADMIT Hospitalist; ATTEND Hospitalist
DX: T78.3XXA Angioneurotic edema, initial encounter (principal); I10 Essential (primary) hypertension; M79.89 Other specified soft tissue disorders; F10.10 Alcohol abuse, uncomplicated
CPT/HCPCS: 70360; 70491; 71010; 80048; 83605; 83735; 84100; 85025; 85610; 85730; 87040; 87081; 87804; 87880; 96361; 96365; 96372; 96375; J0171; J1650; J2543; J2920; J2930; J7030; Q9967